=== PATIENT | female | born 1995 | race Hispanic/Latino ===

== ENCOUNTER 2018-01-24 09:51 | Inpatient (IN) | payer OTHER, SELFPAY ==
[2018-01-24] MEDS ORDERED: Ringers Lactate 1,000 ML IV PRN (11:07)
[2018-01-24 12:00] VITALS: BMI 28.8
[2018-01-24] MEDS ORDERED: Ringers Lactate 1,000 ML IV SCH (12:00)
[2018-01-24 12:10] LABS: RPR Titer ND
[2018-01-24] MEDS ORDERED: NA CIT/CITRIC AC 30 ML ORAL UDC PO ONE (12:16)
[2018-01-24 12:18] LABS: Absolute Lymphocytes (CBC) 2.2 K/uL (0.7-4.9); Absolute Monocytes 0.4 K/uL (0.1-1.3); Absolute Neutrophil 7.3 K/uL (1.8-8.0); Basophils % 1.2 % (0-1.3); Eosinophils % 0.5 % (0-4.4); Hematocrit 31.2 % (36.0-45.0); Lymphocytes % 22.1 % (15.3-44.8); MCH 20.9 pg (27.0-35.0); MCV 64.1 fL (80-100); MPV 8.5 fL (7.6-11.3); Monocytes % 3.7 % (3.3-12.3); RBC Red Blood Cell Count 4.87 M/uL (3.86-4.86)
[2018-01-24] MEDS ORDERED: METOCLOPRAMIDE 10 MG/2mL INJ ONE (12:18)
[2018-01-24] MEDS ORDERED: CEFAZOLIN/SWI 2gm 2 GM/20 ML SYR ONE (12:18)
[2018-01-24 12:21] LABS: Protime INR 0.87
[2018-01-24] MEDS ORDERED: CARBOPROST TROME 250 MCG/ML IM ONE (12:21)
--- NOTE | 2018-01-24 12:35 | RAD REPORT ---
EXAM DESCRIPTION: US - OB Limited - 01/24/2018 12:11 pm CLINICAL HISTORY: , assess for placenta accreta COMPARISON: None FINDINGS: Single live intrauterine is in cephalic presentation. The placenta is anterior. It is not low lying. Placenta lacunae are not noted. The retroplacental myometrial thickness is indio l. A couple of small venous lakes are present. The amniotic fluid index equals 14 centimeters. Cardiac activity 126 beats per minute. IMPRESSION: Cephalic presentation No sonographic evidence of placenta accreta Normal amniotic fluid
[2018-01-24 12:37] LABS: Urine Appearance TURBID; Urine Bilirubin NEGATIVE (NEG); Urine Blood 1+ (NEG); Urine Color YELLOW; Urine Glucose NEGATIVE (NEG); Urine Protein NEGATIVE (NEG); Urine Urobilinogen 0.2 mg/dL (0.2-1.0)
[2018-01-24] MEDS ORDERED: MORPHINE SULFATE/PF 1 MG/ML (10 ML AMP) ONE (12:38)
[2018-01-24 12:54] LABS: Urine Microscopic Reflex ORDER UMIC
[2018-01-24] MEDS ORDERED: OXYTOCIN 10 UNIT/ML ML IV ONE ×2 (12:56→13:23)
[2018-01-24 12:57] LABS: Urine Amorphous Sediment 2+ /HPF (NONE SEEN); Urine Bacteria 20-50 /HPF (<20); Urine Culture Reflex Order ND; Urine Mucus 1+ /HPF (NONE SEEN)
[2018-01-24 12:58] LABS: Platelet Estimate ADEQ; Urine White Blood Cell Casts OK
[2018-01-24 12:59] LABS: Anisocytosis 1+; Blood Morphology Comment NOTED (NOT SEEN); Hypochromasia 1+; Polychromasia 1+
[2018-01-24] MEDS ORDERED: METOCLOPRAMIDE 10 MG/2mL INJ IV SCH (13:00)
[2018-01-24] MEDS ORDERED: CEFAZOLIN 2 GM in NA CHLORIDE 0.9% 100 ML IVPB SCH (13:00)
[2018-01-24] MEDS ORDERED: KETOROLAC 30 MG/ML INJ IM PRN (13:37)
[2018-01-24] MEDS ORDERED: BISACODYL 10 MG RECTAL SUPP RECT PRN (13:37)
[2018-01-24] MEDS ORDERED: DIPHENHYDRAMINE 25 MG TAB/CAP PO PRN (13:37)
[2018-01-24] MEDS ORDERED: ONDANSETRON 4 MG/2 ML VIAL IV PRN (13:37)
[2018-01-24] MEDS ORDERED: ACETAMINOPHEN 500 MG TAB PO PRN (13:37)
[2018-01-24] MEDS ORDERED: KETOROLAC 30 MG/ML INJ IV PRN (13:37)
[2018-01-24] MEDS ORDERED: Oxycodone HCl/Acetaminophen 1 TAB TAB PO PRN (13:37)
[2018-01-24] MEDS ORDERED: ONDANSETRON 4 MG (ODT) TAB PO PRN (13:37)
[2018-01-24] MEDS ORDERED: D5LR 1,000 ML with OXYTOCIN 20 UNIT IV SCH ×2 (14:00)
[2018-01-24] MEDS ORDERED: OXYTOCIN/LR 20 UNIT/1,000 ML BAG IV SCH (14:00)
--- NOTE | 2018-01-24 14:01 | OP ---
Surgeon: Chele Cast MD A 22-year-old, 4, para 3, all previous C-sections. No care. Came into our [facility] at 39 weeks plus in active labor, 2.5 cm to 3 cm from 1 to 1-1/2 on admission within 1 hour. Con tracting regularly. FHTs normal, reactive. Drop-in lab ordered. Full preoperative counseling deanne rning procedures and possible complications, including infection, blood loss, anesthetic complication s, injury to bladder, bowel, ureter, postoperative complications, clots in legs, pneumonia. The vannessa ent knows with each the risk for complications especially bleeding problems is much higher. Ultrasound done prior to surgery demonstrated an anterior placenta, but no signs of accreta. Anesthesia: Spinal block anesthesia, Dr. Rai. Hand Etcher Surgeon: Dr. Arriola. Procedure In Detail: After prepping and draping, timeout was performed and Pfannenstiel incision was created. The incision was carried to the fascia. Fascia incised and incision carried transversely bilaterally. Anterior fascial plane was developed with both blunt and sharp dissection. A peritonea l defect was encountered, but then it was discovered there were significant adhesions all along the a nterior surface of the uterus. Careful dissection created a window. It was necessary to partially c ut the rectus muscles in the midportion for enough room. A low transverse incision was created. A 7 pounds 2 ounces male infant was delivered with the aid of vacuum suction. Apgars 8 and 9. Cord blo od specimen was obtained. The placenta was removed manually. It was impossible to remove the uterus from the peritoneal cavity because of scarring. Cervical os was dilated. Uterus closed with a runn ing-locked stitch of 1 chromic. Two to 3 [id number] stitches, placed in a small 3 cm defect just above the incision line where scar tissue had been removed. No further bleeding was seen at this po int. Estimated blood loss during procedure 750-800 cc. No further bleeding was seen. The rectus mu scles were reapproximated using 0 Vicryl including the bisected portion. Fascia was closed with 1 Vi cryl running from either angle to the midline. Subcutaneous tissue was closed with 2-0 plain. Absor bable ashu placed and then metal ashu. The patient tolerated all procedures well, transferred back to her room in good condition. She had been given 2 g of Ancef for prophylaxis. She was noted to be anemic on admission with amount hematocrit 31. Final Diagnoses: 1.Term intrauterine . No care. 2.Repeat section. 3.Spinal block anesthesia. 4.Severe anterior uterine scarring. SAVANNAH/URI Voice ID: [id number] Report ID: [id number]
[2018-01-24] MEDS ORDERED: METHYLERGONOVINE 0.2MG/ML AMP IM ONE (15:16)
[2018-01-24 15:41] LABS: Barbiturates NEGATIVE (NEGATIVE); Benzodiazepines NEGATIVE (NEGATIVE); Cocaine NEGATIVE (NEGATIVE); METHAMPHETAM NEGATIVE (NEGATIVE); Opiates NEGATIVE (NEGATIVE); Phencyclidine NEGATIVE (NEGATIVE); THC Cannibis NEGATIVE (NEGATIVE)
[2018-01-24] MEDS ORDERED: CEFAZOLIN/NS 1gm 1 GM/50 ML BAG IVPB ONE (21:00)
[2018-01-24] MEDS ORDERED: CEFAZOLIN/SWI 1gm 1 GM/10 ML SYR IV ONE (21:00)
[2018-01-25] MEDS: Oxycodone HCl/Acetaminophen 1 TAB TAB PO PRN ×3 (07:17→20:11)
[2018-01-25] MEDS ORDERED: FAMOTIDINE 20 MG/2 ML VIAL IV ONE (12:17)
[2018-01-25] MEDS ORDERED: MAGNESIUM HYDROXIDE 8% 30 ML PO PRN (13:37)
[2018-01-25 20:36] LABS: RPR (Rapid Plasma Reagin) NON-REACT (NON-REACT)
[2018-01-26] MEDS: Oxycodone HCl/Acetaminophen 1 TAB TAB PO PRN (04:10)
[2018-01-26 07:15] VITALS: BP 85/45; TEMP 97.9
[2018-01-26] MEDS ORDERED: Tdap (Diph,Pertuss(Acell),Tet Vac) 0.5 ML SYR IMVAC ONE ×2 (07:48→07:53)
--- NOTE | 2018-01-26 08:36 | PN ---
Postoperatively, the patient is doing quite well. H and H with expected drop. She has been informed of course about her anemia and knows that she needs to continue for several months taking iron pills . We will remove her Sanders and IV this morning. Tdap administration discussed and suggested. We ar e waiting on her rubella titer that will not be ready during this hospitalization. She is instructed to come to the office next week for staple removal and we can possibly see what her rubella status i s at that time and she has had 3 other pregnancies positive and she says she is not gettin g again nonetheless if she shows up at the office. She has no complaints or prob lems. She has already been up again, but we discussed as we did yesterday the severe scarring and th e possibility that if she gets again, complications during the delivery to be quite signific ant. I have encouraged her to sign the permit for tubal sterilization and then [facility] for possible laparoscopic tubal 6-8 weeks now. We will see if she follows up on elsa t. Doing well. SAVANNAH/URI Voice ID: [id number] Report ID: [id number]
--- NOTE | 2018-01-27 11:04 | DS ---
Date of Discharge: 01/26/2018 A 22-year-old, 4, para 3, all previous C-sections and no care, came in active labor, 39 weeks and 7, delivered by section of a 7 pound 2 ounce male , Apgars 8 and 9. Spi nal block anesthesia, 750-800 cc blood loss. Anemia on admission 31, fell to 25 postop, but the vannessa ent is quite stable. Pulse is in 70-80 range. Lochia is normal. 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 No postspinal bl ock problems. Will be dismissed today to report back to my office of this week for staple r emoval, to report any temperature elevation of 100 degrees or greater, severe pain, heavy bleeding, o r any other type of abnormalities. Dismissed with tramadol for analgesia. She is Rh positive. Rube lla status is unknown. Offered Tdap immunization. The patient possibly is requesting sterilization. We will have her sign a permit in my office if she comes to my office as instructed and referred to [facility] for outpatient sterilization 6-8 weeks ; however, the patient has shown no tendency t o seek medical care whether she follows up, we will see. Rubella immunization is unknown, that will also be followed up if the patient comes to my office. Final Diagnoses: 1.Term intrauterine at 39 weeks. 2.Repeat section. 3.Spinal block anesthesia. 4.Severe anterior uterine scarring noted at the time of surgery. This has been thoroughly discussed with the patient. SAVANNAH/URI Voice ID: [id number] Report ID: [id number]
[2018-01-28 04:02] LABS: HBsAG Nonreactive (Nonreactive)
== END 2018-01-26 09:35 | disposition home or self-care (01) | DRG 766 ==
LOC: L&D 09:51 → 2ND-WC 11:18
PROVIDERS: ADMIT Specialist; ATTEND Specialist
PROC: 10D00Z1 Extraction of Products of Conception, Low, Open Approach (ICD-10-PCS; principal; 2018-01-24 12:30)
DX: O34.211 Maternal care for low transverse scar from previous cesarean delivery (principal); N85.8 Other specified noninflammatory disorders of uterus; Z3A.39 39 weeks gestation of pregnancy; Z37.0 Single live birth; O99.02 Anemia complicating childbirth; D64.9 Anemia, unspecified; Z23 Encounter for immunization
CPT/HCPCS: 36415; 76815; 80307; 81003; 81015; 85014; 85025; 85610; 85730; 86592; 86762; 86900; 86901; 87340; 88307; 90715; G0433; J0690; J2210; J2405; J2590; J2765

== ENCOUNTER 2020-06-23 21:10 | Emergency (ER) | payer OTHER, SELFPAY ==
[2020-06-23 21:33] LABS: Absolute Lymphocytes (CBC) 2.1 K/uL (0.7-4.9); Basophils % 1.5 % (0-1.3); Hematocrit 39.4 % (36.0-45.0); Lymphocytes % 23.4 % (15.3-44.8); MPV 7.5 fL (7.6-11.3); RBC Red Blood Cell Count 5.15 M/uL (3.86-4.86)
[2020-06-23 21:38] LABS: Protime INR 0.97
[2020-06-23] MEDS ORDERED: NA CHLORIDE 0.9% 1,000 ML ONE (21:46)
[2020-06-23] MEDS ORDERED: FAMOTIDINE 20 MG/2 ML VIAL IV ONE (21:46)
[2020-06-23] MEDS ORDERED: KETOROLAC 30 MG/ML INJ ONE (21:46)
[2020-06-23 22:18] LABS: ALT/SGPT 640 U/L (12-78); Alkaline Phosphatase 269 U/L (45-117); BUN Blood Urea Nitrogen 10 mg/dL (7-18); Bicarbonate 27 mmol/L (21-32); Bilirubin Direct 0.8 mg/dL (0-0.2); Bilirubin Total 1.1 mg/dL (0.2-1.0); Glucose Level 99 mg/dL (74-106); Magnesium 2.2 mg/dL (1.8-2.4); NT PRO-BNP 20 pg/mL (<125); Potassium 3.6 mmol/L (3.5-5.1); Protein, Total 8.2 g/dL (6.4-8.2); Sodium Level 144 mmol/L (136-145); Troponin (Emerg Dept Use Only) < 0.02 ng/mL (0.0-0.045)
[2020-06-23 22:21] LABS: AST/SGOT 336 U/L (15-37)
--- NOTE | 2020-06-24 00:33 | ER ---
Nurse's Notes [facility] Name: Kimberlyn Stanley Age: 25 yrs Sex: Female : 1995 Arrival Date: 06/23/2020 Time: 21:11 Bed 2 Private MD: Diagnosis: Abnormal results of liver function studies;Other chest pain;Choledocholithiasis Presentation: 06/23 21:17 Chief complaint: Patient states: "I have been having chest pain on and off since about jd3 Friday. this comes with shortness of breath and it radiates to my back.". Coronavirus screen: At this time, the client does not indicate any symptoms associated with coronavirus-19. Ebola Screen: Patient negative for fever greater than or equal to 101.5 degrees Fahrenheit, and additional compatible Ebola Virus Disease symptoms. Initial Sepsis Screen: Does the patient meet any 2 criteria? No. Patient's initial sepsis screen is negative. Does the patient have a suspected source of infection? No. Patient's initial sepsis screen is negative. Risk Assessment: Do you want to hurt yourself or someone else? Patient reports no desire to harm self or others. Onset of symptoms was June 18, 2020. 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 - Social history:: Smoking status: Reported history of juuling and/or vaping. Screenin:20 Abuse screen: Denies threats or abuse. Nutritional screening: No deficits noted. ea Tuberculosis screening: No symptoms or risk factors identified. Fall Risk IV access (20 points). Assessment: 21:23 General: Appears in no apparent distress. comfortable, Behavior is calm, cooperative. mg2 Pain: Complains of pain in chest Pain does not radiate. Pain currently is 5 out of 10 on a pain scale. Quality of pain is described as aching, Pain began gradually, Is intermittent. Neuro: Level of Consciousness is awake, alert, obeys commands, Oriented to person, place, time, situation. Cardiovascular: Capillary refill < 3 seconds Patient's skin is warm and dry. Respiratory: Airway is patent Respiratory effort is even, unlabored, Respiratory pattern is regular, symmetrical. GI: Reports epigastric pain. GI: Reports nausea. : No signs and/or symptoms were reported regarding the genitourinary system. EENT: No signs and/or symptoms were reported regarding the EENT system. Derm: Skin is intact, is healthy with good turgor, Skin is pink, warm \\T\\ dry. normal. Musculoskeletal: Circulation, motion, and sensation intact. Capillary refill < 3 seconds. 22:04 Reassessment: Patient and/or family updated on plan of care and expected duration. Pain ea level reassessed. Patient is alert, oriented x 3, equal unlabored respirations, skin warm/dry/pink. 23:30 Reassessment: Patient and/or family updated on plan of care and expected duration. Pain ea level reassessed. Patient is alert, oriented x 3, equal unlabored respirations, skin warm/dry/pink. 06/24 00:47 Reassessment: Patient and/or family updated on plan of care and expected duration. Pain ea level reassessed. Patient is alert, oriented x 3, equal unlabored respirations, skin warm/dry/pink. 02:32 Reassessment: Patient appears in no apparent distress at this time. Patient and/or mg2 family updated on plan of care and expected duration. Pain level reassessed. Patient is alert, oriented x 3, equal unlabored respirations, skin warm/dry/pink. patient is aware about the plan for transfer to [facility]. 04:42 Reassessment: Patient appears in no apparent distress at this time. Patient and/or mg2 family updated on plan of care and expected duration. Pain level reassessed. Patient is alert, oriented x 3, equal unlabored respirations, skin warm/dry/pink. 05:05 Reassessment: patient in good condition and iv intact prior to transfer. report given mg2 to [facility]. Vital Signs: 06/23 21:19 BP 117 / 83; Pulse 97; Resp 16 S; Temp 97.3(TE); Pulse Ox 99% on R/A; Weight 63.5 kg jd3 (R); Height 4 ft. 11 in. (149.86 cm) (R); Pain 5/10; 23:39 BP 109 / 83; Pulse 92; Resp 18; Pulse Ox 100% on R/A; mg2 06/24 00:48 BP 109 / 79; Pulse 88; Resp 18; Pulse Ox 99% on R/A; ea 02:32 BP 109 / 85; Pulse 83; Resp 18; Pulse Ox 98% on R/A; mg2 04:42 BP 101 / 67; Pulse 68; Resp 18; Pulse Ox 97% on R/A; mg2 06/23 21:19 Body Mass Index 28.28 (63.50 kg, 149.86 cm) jd3 ED Course: 06/23 21:11 Patient arrived in ED. ag5 21:13 Samir Butt, RAJESH is Primary Nurse. mg2 21:18 Tom Lainez PA is PHCP. cp 21:18 Bao Elizalde MD is Attending Physician. cp 21:18 Triage completed. jd3 21:20 Arm band placed on. EKG completed in triage. Results shown to MD. jd3 21:20 Inserted saline lock: 20 gauge in right antecubital area, using aseptic technique. ea 21:21 Patient has correct armband on for positive identification. Placed in gown. Bed in low ea position. Call light in reach. Side rails up X2. track repairer helper on. Pulse ox on. NIBP on. 21:21 Patient maintains SpO2 saturation greater than 95% on room air. ea 21:34 XRAY Chest (1 view) In Process Unspecified. EDMS 22:43 Radiology exam delayed due to test not completed at this time. vm2 22:46 US Abdomen Limited: elevated liver enzymes In Process Unspecified. EDMS 23:40 CT Abd/Pelvis - IV Contrast Only In Process Unspecified. EDMS 06/24 00:42 Initiated transfer at [facility] with Janice and was transferred over to Lainey. tt3 Transferred the call over to PREET Rust, to speak with Lainey. 01:40 Lainey called back with their hospitalist to speak with PREET Rust, regarding the tt3 transfer request. 01:53 Lainey called back and gave admin approval. The accepting physician is Rachel May. He tt3 accepted at 0146. The pt is going to 9th tower bed 23. Face sheet faxed to per Lainey's request. Nurse to call report to [phone]. 05:05 No provider procedures requiring assistance completed. Patient admitted, IV remains in mg2 place. Administered Medications: 06/23 21:36 Drug: NS 0.9% 1000 ml Route: IV; Rate: 1 bolus; Site: right antecubital; ea 06/24 00:46 Follow up: Response: No adverse reaction; IV Status: Completed infusion; IV Intake: mg2 1000ml 06/23 21:37 Drug: TORadol - Ketorolac 15 mg Route: IVP; Site: right antecubital; ea 22:26 Follow up: Response: No adverse reaction mg2 21:37 Drug: Pepcid 20 mg Route: IVP; Site: right antecubital; ea 22:26 Follow up: Response: No adverse reaction mg2 06/24 00:55 Drug: Rocephin - (cefTRIAXone) 1 grams Route: IVPB; Infused Over: 30 mins; Site: right ea antecubital; 02:18 Follow up: Response: No adverse reaction; IV Status: Completed infusion mg2 03:44 Drug: morphine 2 mg {Note: Rass 0.} Route: IVP; Site: right antecubital; ea 04:56 Follow up: Response: No adverse reaction; Pain is decreased ea Intake: 00:46 IV: 1000ml; Total: 1000ml. mg2 Outcome: 00:32 ER care complete, transfer ordered by MD. goddard 05:05 Transferred by [facility] to [facility], Transfer form completed. mg2 05:05 Condition: stable 05:05 Instructed on the need for transfer, Demonstrated understanding of instructions. 05:06 Patient left the ED. mg2 Signatures: Dispatcher [employer] EDMS Tom Lainez PA PA cp McGuire, Victoria 2 Fatimah Ziegler RN RN ea Davies, Jonathon, RN RN jd3 Gardose, Michele, RN RN mg2 Gaskin, Ajare ag5 Renny Chapman tt3 Corrections: (The following items were deleted from the chart) 05:05 06/23 21:24 No provider procedures requiring assistance completed. mg2 mg2 06/24 05:06 05:05 Reassessment: patient in good condition and iv intact prior to transfer mg2 mg2
--- NOTE | 2020-06-24 00:33 | EDPHYS ---
Physician Documentation [facility] Name: Kimberlyn Stanley Age: 25 yrs Sex: Female : 1995 Arrival Date: 06/23/2020 Time: 21:11 Bed 2 Private MD: ED Physician Bao Elizalde HPI: 06/23 21:25 This 25 yrs old Female presents to ER via Ambulatory with complaints of Chest cp Pain, Back Pain. 21:25 The patient or guardian reports chest pain that is located primarily in the substernal cp area. 21:25 The pain radiates to right back. Associated signs and symptoms: Pertinent positives: cp shortness of breath, Pertinent negatives: abdominal pain, cough, nausea, vomiting. The chest pain is described as sharp. Duration: The patient or guardian reports multiple episodes, that wax and wane. Modifying factors: the symptoms are aggravated by nothing. Severity of pain: in the emergency department the pain has improved markedly. 21:25 Patient reports pain has been intermittent since this past Friday. Had episode of pain cp this evening that has since improved. 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 - Social history:: Smoking status: Reported history of juuling and/or vaping. ROS: 21:25 Cardiovascular: Positive for chest pain, Negative for edema, palpitations. cp 21:25 Eyes: Negative for injury, pain, redness, and discharge. cp 21:25 Constitutional: Negative for body aches, chills, fever, poor PO intake. 21:25 ENT: Negative for ear pain, sore throat, difficulty swallowing, difficulty handling secretions. 21:25 Respiratory: Negative for cough, shortness of breath, wheezing. 21:25 Abdomen/GI: Negative for abdominal pain, nausea, vomiting, and diarrhea. 21:25 Back: Positive for radiated pain, of the right scapular area. 21:25 Skin: Negative for rash. 21:25 Neuro: Negative for altered mental status, dizziness, headache, syncope, weakness. 21:25 All other systems are negative. Exam: 21:25 ECG was reviewed by the Attending Physician. cp 21:28 Head/Face: Normocephalic, atraumatic. cp 21:28 Eyes: Periorbital structures: appear normal, Conjunctiva: normal, no exudate, no injection, Sclera: no appreciated abnormality, Lids and lashes: appear normal, bilaterally. 21:28 ENT: External ear(s): are unremarkable, Nose: is normal, Posterior pharynx: Airway: no evidence of obstruction, patent. 21:28 Neck: ROM/movement: is normal, is supple, without pain, no range of motions limitations. 21:28 Chest/axilla: Inspection: normal, Palpation: is normal, no crepitus, no tenderness. 21:28 Cardiovascular: Rate: normal, Rhythm: regular, Heart sounds: murmur, not appreciated, Edema: is not appreciated, JVD: is not appreciated. 21:28 Respiratory: the patient does not display signs of respiratory distress, Respirations: normal, no use of accessory muscles, no retractions, labored breathing, is not present, Breath sounds: are clear throughout, no decreased breath sounds, no stridor, no wheezing. 21:28 Abdomen/GI: Inspection: abdomen appears normal, Bowel sounds: active, all quadrants, Palpation: abdomen is soft and non-tender, in all quadrants, rebound tenderness, is not appreciated, involuntary guarding, is not appreciated. 21:28 Back: pain, that is mild, of the right scapular area, ROM is normal. 21:28 Skin: no rash present. 21:28 Neuro: Orientation: to person, place \T\ time. Mentation: is normal, Motor: moves all fours, strength is normal. 21:28 Constitutional: The patient appears in no acute distress, alert, awake, cp non-diaphoretic, non-toxic, well developed, well nourished. Vital Signs: 21:19 BP 117 / 83; Pulse 97; Resp 16 S; Temp 97.3(TE); Pulse Ox 99% on R/A; Weight 63.5 kg jd3 (R); Height 4 ft. 11 in. (149.86 cm) (R); Pain 5/10; 23:39 BP 109 / 83; Pulse 92; Resp 18; Pulse Ox 100% on R/A; mg2 06/24 00:48 BP 109 / 79; Pulse 88; Resp 18; Pulse Ox 99% on R/A; ea 02:32 BP 109 / 85; Pulse 83; Resp 18; Pulse Ox 98% on R/A; mg2 04:42 BP 101 / 67; Pulse 68; Resp 18; Pulse Ox 97% on R/A; mg2 06/23 21:19 Body Mass Index 28.28 (63.50 kg, 149.86 cm) jd3 MDM: 06/23 21:28 Patient medically screened. 06/24 00:28 Data reviewed: vital signs, nurses notes, lab test result(s), EKG, radiologic studies, CT scan, ultrasound, I have discussed the patient's presentation/case with the attending Emergency Department Physician; and as a result, I will administer antibiotics Rocephin, attempt to transfer patient due to inability to perform MRI and lack of GI services. 01:46 Physician consultation: was contacted at 01:46, regarding regarding transfer, to [facility]. DR Pulido, hospitalist, will accept patient for continued treatment and testing. 06/23 21:22 Order name: Basic Metabolic Panel; Complete Time: 22:22 mg2 06/24 00:57 Interpretation: Normal except: CL 108. 06/23 21:22 Order name: CBC with Diff; Complete Time: :22 [facility] 06/23 21:22 Order name: LFT's; Complete Time: 22:22 [facility] 06/24 00:28 Interpretation: Normal except: AST 336; ALT 640; ALK 269; BILIT 1.1; BILID 0.8; GLOB cp 4.2; A/G 1.0. 06/23 21:22 Order name: Magnesium; Complete Time: 22:22 mg2 06/23 21:22 Order name: NT PRO-BNP; Complete Time: 22:22 mg2 06/23 21:22 Order name: PT-INR; Complete Time: :22 [facility] 06/23 21:22 Order name: Troponin (emerg Dept Use Only); Complete Time: 22:22 mg2 06/23 21:22 Order name: XRAY Chest (1 view) [facility] 06/23 21:29 Order name: COVID-19 06/23 21:29 Order name: Lipase; Complete Time: 22:22 cp 06/23 21:29 Order name: D-Dimer; Complete Time: 22:22 cp 06/23 22:25 Order name: US Abdomen Limited: elevated liver enzymes cp 06/23 22:25 Order name: CT Abd/Pelvis - IV Contrast Only cp 06/23 21:22 Order name: EKG; Complete Time: 21:23 mg2 06/23 21:22 Order name: Cardiac monitoring; Complete Time: : mg2 06/23 21:22 Order name: EKG - Nurse/Tech; Complete Time: : mg2 06/23 21:22 Order name: IV Saline Lock; Complete Time: : mg2 06/23 21:22 Order name: Labs collected and sent; Complete Time: : mg2 06/23 21:22 Order name: O2 Per Protocol; Complete Time: : mg2 06/23 21: Order name: O2 Sat Monitoring; Complete Time: : mg2 06/23 22:25 Order name: NPO; Complete Time: 22:26 cp EC/13 21:25 Rate is 92 beats/min. Rhythm is regular. AR interval is normal. QRS interval is normal. cp QT interval is normal. T waves are Inverted in lead aVR. Interpreted by me. Reviewed by me. Administered Medications: 21:36 Drug: NS 0.9% 1000 ml Route: IV; Rate: 1 bolus; Site: right antecubital; ea 06/24 00:46 Follow up: Response: No adverse reaction; IV Status: Completed infusion; IV Intake: mg2 1000ml 06/23 21:37 Drug: TORadol - Ketorolac 15 mg Route: IVP; Site: right antecubital; ea 22:26 Follow up: Response: No adverse reaction mg2 21:37 Drug: Pepcid 20 mg Route: IVP; Site: right antecubital; ea 22:26 Follow up: Response: No adverse reaction mg2 06/24 00:55 Drug: Rocephin - (cefTRIAXone) 1 grams Route: IVPB; Infused Over: 30 mins; Site: right ea antecubital; 02:18 Follow up: Response: No adverse reaction; IV Status: Completed infusion mg2 03:44 Drug: morphine 2 mg {Note: Rass 0.} Route: IVP; Site: right antecubital; ea 04:56 Follow up: Response: No adverse reaction; Pain is decreased ea Disposition: 06:09 Co-signature as Attending Physician, Bao Elizalde MD. [email or web address] Disposition: 06/24/20 00:[address] [facility]. Diagnosis are Abnormal results of liver function studies, Other chest pain, Choledocholithiasis. - Reason for transfer: Higher level of care. - Accepting physician is DR Pulido. - Condition is Stable. - Problem is new. - Symptoms have improved. Signatures: Dispatcher [employer] EDMS Tom Lainez PA PA cp Antunez, Elena, RN RN ea Davies, Jonathon, RN RN jd3 Gardose, Michele, RN RN mg2 Holmes, Maurice, MD MD [email or web address] Corrections: (The following items were deleted from the chart) 06/23 21:48 06/22 21:28 Head/Face: Normocephalic, atraumatic. cp cp 06/23 21:48 06/22 21:28 Eyes: Periorbital structures: appear normal, Conjunctiva: normal, no cp exudate, no injection, Sclera: no appreciated abnormality, Lids and lashes: appear normal, bilaterally, cp 06/23 21:48 06/22 21:28 ENT: External ear(s): are unremarkable, Nose: is normal, Posterior pharynx: cp Airway: no evidence of obstruction, patent, cp 06/23 21:48 06/22 21:28 Neck: ROM/movement: is normal, is supple, without pain, no range of motions cp limitations, cp 06/23 21:48 06/22 21:28 Chest/axilla: Inspection: normal, Palpation: is normal, no crepitus, no cp tenderness, cp 06/23 21:48 06/22 21:28 Cardiovascular: Rate: normal, Rhythm: regular, Heart sounds: murmur, not cp appreciated, Edema: is not appreciated, JVD: is not appreciated, cp 06/23 21:48 06/22 21:28 Respiratory: the patient does not display signs of respiratory distress, cp Respirations: normal, no use of accessory muscles, no retractions, labored breathing, is not present, Breath sounds: are clear throughout, no decreased breath sounds, no stridor, no wheezing, cp 06/23 21:48 06/22 21:28 Abdomen/GI: Inspection: abdomen appears normal, Bowel sounds: active, all cp quadrants, Palpation: abdomen is soft and non-tender, in all quadrants, rebound tenderness, is not appreciated, involuntary guarding, is not appreciated, cp 06/23 21:48 06/22 21:28 Back: pain, that is mild, of the right scapular area, ROM is normal, cp cp 06/23 21:48 06/22 21:28 Skin: no rash present. cp cp 06/23 21:48 06/22 21:28 Neuro: Orientation: to person, place \T\ time. Mentation: is normal, Motor: cp moves all fours, strength is normal, cp 06/23 21:54 06/22 21:28 Constitutional: The patient appears in no acute distress, alert, awake, cp non-diaphoretic, non-toxic, well developed, well nourished, cp 06/24 00:28 06/23 22:23 Normal except: AST 336; ALT 640; ALK 269; BILIT 1.1; BILID 0.8; [facility] 06/[facility] 01:34 00:32 06/24/2020 00:[address] [facility]. cp Diagnosis is Cholelithiasis; Abnormal results of liver function studies; Other chest pain. Reason for transfer: Higher level of care. Accepting physician is Doctor. Condition is Stable. Problem is new. Symptoms have improved. cp 01:47 01:34 06/24/2020 00:[address] [facility]. cp Diagnosis is Abnormal results of liver function studies; Other chest pain; Choledocholithiasis. Reason for transfer: Higher level of care. Accepting physician is Doctor. Condition is Stable. Problem is new. Symptoms have improved. cp 05:06 01:47 06/24/2020 00:[address] [facility]. mg2 Diagnosis is Abnormal results of liver function studies; Other chest pain; Choledocholithiasis. Reason for transfer: Higher level of care. Accepting physician is DR Pulido. Condition is Stable. Problem is new. Symptoms have improved. cp
[2020-06-24] MEDS ORDERED: CEFTRIAXONE/SWI 1gm 1 GM/10 ML SYR ONE (00:52)
[2020-06-24] MEDS ORDERED: MORPHINE 2 MG/ML SYR ONE (03:54)
[2020-06-24 08:10] VITALS: TEMP 97.3
[2020-06-24 08:16] VITALS: BP 101/67; O2SAT 97
--- NOTE | 2020-06-24 09:27 | RAD REPORT ---
EXAM DESCRIPTION: RAD - Chest Single View - 06/23/2020 9:34 pm CLINICAL HISTORY: CHEST PAIN COMPARISON: None TECHNIQUE: AP portable chest image was obtained 06/23/2020 9:34 pm . FINDINGS: Lungs are clear. Heart and vasculature are normal. No measurable pleural effusion and no p neumothorax. No acute bony abnormality seen. No acute aortic findings suspected. IMPRESSION: No acute cardiopulmonary process.
--- NOTE | 2020-06-24 17:16 | RAD REPORT ---
EXAM DESCRIPTION: US - Abdomen Exam Limited - 06/23/2020 10:46 pm CLINICAL HISTORY: Chest pain COMPARISON: None. 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 There is no wall thickening or pericholecy stic fluid. Main portal vein is patent. IMPRESSION: Extensive cholelithiasis. Electronically signed by: Earnest Coulter MD 06/23/2020 11:13 PM CERTIFIED FLIGHT INSTRUCTOR Due to temporary technical issues with the PACS/Fluency reporting system, reports are being signed by the in house radiologists without review as a courtesy to insure prompt reporting. The interpreting radiologist is fully responsible for the content of the report.
--- NOTE | 2020-06-24 17:25 | RAD REPORT ---
EXAM DESCRIPTION: CT - Abdomen Pelvis W Contrast - 06/24/2020 1:17 am CLINICAL HISTORY: The patient is 25 years old and is Female; elevated liver enzymes TECHNIQUE: Axial computed tomography images of the abdomen and pelvis with intravenous contrast. S agittal and coronal reformatted images were created and reviewed. This CT exam was performed using one or more of the following dose reduction techniques: automated exposure control, adjustment of t he mA and/or kV according to patient size, and/or use of iterative reconstruction technique. DLP: 1630 mGy*cm COMPARISON: Abdominal ultrasound the same day. FINDINGS: LUNG BASES: Lung bases are clear. HEART: Visualized heart is normal. ABDOMEN: LIVER: Hepatic stenosis. GALLBLADDER AND BILE DUCTS: Cholelithiasis. No pericholecystic fluid. Incompletely distended gallbl adder. No ductal dilation. PANCREAS: Unremarkable. No mass. No ductal dilation. SPLEEN: Unremarkable. No splenomegaly. ADRENALS: Unremarkable. No mass. KIDNEYS AND URETERS: Unremarkable. No solid mass. No hydronephrosis. STOMACH AND BOWEL: Unremarkable. No obstruction. No mucosal thickening. PELVIS: APPENDIX: The appendix is seen and is within normal limits. BLADDER: Bladder is decompressed. REPRODUCTIVE: Right ovarian cyst measuring to 2.6 cm. ABDOMEN and PELVIS: INTRAPERITONEAL SPACE: Unremarkable. No free air. No significant fluid collection. BONES/JOINTS: No acute fracture. No dislocation. SOFT TISSUES: Small fat-containing umbilical hernia. VASCULATURE: Unremarkable. No abdominal aortic aneurysm. LYMPH NODES: Unremarkable. No enlarged lymph nodes. IMPRESSION: 1. No acute abdominal or pelvic abnormality. 2. Cholelithiasis. No pericholecystic fluid. Incompletely distended gallbladder. Correlate with a bdominal ultrasound findings. 3. Hepatic stenosis. 4. Right ovarian cyst measuring to 2.6 cm. No follow-up imaging is recommended. Reference: US recommendations based on Radiology 2010 Sep;256(3):943-54; CT/MR recommendations based on J Am Binu Radiol 2013;10:675-681. Electronically signed by: Kirt Ramon DO 06/24/2020 12:09 AM MEDICAL ESTHETICIAN Due to temporary technical issues with the PACS/Fluency reporting system, reports are being signed by the in house radiologists without review as a courtesy to insure prompt reporting. The interpreting radiologist is fully responsible for the content of the report.
--- NOTE | 2020-06-25 07:44 | EKG ---
Test Date: 2020-06-23 Test Time: 21:17:20 Director Of Knowledge Management: MARTY MEASUREMENT RESULTS: Intervals: Rate: 92 [place]: 130 QRSD: 74 QT: 352 QTc: 435 [place]: P: 64 [place]: 130 QRS: 54 T: 47 INTERPRETIVE STATEMENTS: Normal sinus rhythm Normal ECG No previous ECG available for comparison Electronically Signed On 06-25-20 07:40:55 SEWAGE PLANT ATTENDANT by Ge Mancera
== END 2020-06-24 05:06 | disposition short-term general hospital (02) ==
LOC: ER 21:10
DX: K80.50 Calculus of bile duct without cholangitis or cholecystitis without obstruction (principal); R94.5 Abnormal results of liver function studies
CPT/HCPCS: 36415; 71045; 74177; 76705; 80048; 80076; 83690; 83735; 83880; 84484; 85025; 85379; 85610; 93005; 96361; 96365; 96375; 99285; J0696; J2270; J7030; Q9967